=== PATIENT | male | born 1970 ===

== ENCOUNTER 2017-03-11 22:28 | Emergency (ER) | payer SELFPAY ==
[2017-03-11 22:38] VITALS: TEMP 99; O2SAT 98
--- NOTE | 2017-03-12 00:10 | C.PDOC ---
History Of Present Illness 46 year old male who presents to the ER with a complaint of pain to is right lower posterior tooth since yesterday. Patient states he broke his tooth approximately 1 week ago; he has been taking motrin with some relief. Denies recent injury, discharge from gums, or active bleeding. Chief Complaint (Nursing): Dental Pain History Per: Patient History/Exam Limitations: no limitations Onset/Duration Of Symptoms: Days Current Symptoms Are (Timing): Still Present Quality: Positive for: Aching Recent travel outside of the [place]: No Past Medical History Reviewed: Historical Data, Nursing Documentation, Vital Signs Vital Signs: Last Vital Signs Temp 99 F 03/11/17 22:35 Pulse 77 03/12/17 00:12 Resp 18 03/12/17 00:12 BP 142/85 03/12/17 00:12 Pulse Ox 98 03/12/17 00:29 - Medical History PMH: No Chronic Diseases Surgical History: No Surg Hx Family History: States: Unknown Family Hx - Social History Hx Alcohol Use: Yes Hx Substance Use: No - Immunization History Hx Tetanus Toxoid Vaccination: No Hx Influenza Vaccination: No Hx Pneumococcal Vaccination: No Review Of Systems ENT: Positive for: Mouth Pain. Negative for: Mouth Swelling, Throat Pain, Throat Swelling Physical Exam - Physical Exam Appears: Non-toxic Skin: Normal Color, Warm, Dry Head: Atraumatic, Normacephalic Oral Mucosa: Moist Lips: Normal Appearing, No Swelling Teeth: Caries (Giant myrna to right upper posterior molar ) Gingiva: Normal Appearing, No Swelling, No Bleeding Throat: Normal, No Erythema, No Exudate Neck: Normal, Supple Neurological/Psych: Oriented x3, Normal Speech, Normal Cognition ED Course And Treatment O2 Sat by Pulse Oximetry: 98 (Room air) Pulse Ox Interpretation: Normal Progress Note: Toradol administered. On reevaluation, patient feels better; will discharge home with instructions to follow up with dentist. Disposition Counseled Patient/Family Regarding: Diagnosis, Need For Followup, Rx Given - Disposition Disposition: HOME/ ROUTINE Disposition Time: 00:08 Condition: STABLE Additional Instructions: Take ibuprofen as prescribed. Follow up with dentist on Monday as scheduled. Return to ER for any facial swelling, fever, worsening pain or other concerns. Prescriptions: Ibuprofen [Motrin] 600 mg PO TID #30 tab Instructions: Dental Caries (ED) Forms: General Discharge Instructions - Clinical Impression Clinical Impression: Dental caries - Scribe Statement The provider has reviewed the documentation as recorded by the Scribe Oscar Marsh All medical record entries made by the Scribe were at my direction and personally dictated by me. I have reviewed the chart and agree that the record accurately reflects my personal performance of the history, physical exam, medical decision making, and the department course for this patient. I have also personally directed, reviewed, and agree with the discharge instructions and disposition.
[2017-03-12 00:13] VITALS: BP 142/85; PULSE 77; RESP 18
== END 2017-03-12 00:12 | disposition home or self-care (01) ==
LOC: C.ER 22:28
DX: K02.9 Dental caries, unspecified (principal)
CPT/HCPCS: 96372; 99283; J1885